=== PATIENT | female | born 1985 | race Caucasian/White ===

== ENCOUNTER 2021-09-29 11:07 | Emergency (ER) | payer OTHER ==
[~2021-09-29] VITALS: Ht 154.9 cm; Wt 60.8 kg
[2021-09-29 11:22] VITALS: BP 113/61
--- NOTE | 2021-09-29 11:32 | NUR ---
PT AMBULATED TO ER BED 12
--- NOTE | 2021-09-29 11:40 | NUR ---
36 Y/O FEMALE PRESENTS TO ED WITH REFERRAL FROM DR MARTIN TO R/O ECTOPIC , REQUESTING US AND BLOOD WORK. PT DENIES VAGINAL BLEEDING/DISCHARGE. PT REPORTS NAUSEA BUT DENIES VOMITING. DENIES ABDOMINAL PAIN AT THIS TIME BUT REPORTS INTERMITTENT LLQ ABD PAIN. LMP 08/20. [id number]. PT REPORTS SHE WAS AT [facility] FOR VAGINAL BLEEDING. PT FOLLOWED UP WITH DR MARTIN. PT A/O X4 WITH EVEN AND UNLABORED RESPIRATIONS. PT IN GOWN. MEDHX: ASTHMA NKDA
--- NOTE | 2021-09-29 11:48 | NUR ---
LAB AT BEDSIDE
[2021-09-29 12:12] LABS: BASOPHILS # (AUTO) 0.1 K/uL (0.00-0.22); BASOPHILS % (AUTO) 1.2 % (0.0-2.0); EOSINOPHILS # (AUTO) 0.2 K/uL (0-0.4); EOSINOPHILS % (AUTO) 5.2 % (0.0-4.0); HEMATOCRIT 33.6 % (36-48); HEMOGLOBIN 11.4 g/dL (12.0-16.0); LYMPHOCYTES # (AUTO) 0.8 K/uL (2.5-16.5); LYMPHOCYTES % (AUTO) 17.6 % (20.5-51.1); MEAN CORPUSCULAR HEMOGLOBIN 31 pg (27-31); MEAN CORPUSCULAR HGB CONC 34 g/dL (33-37); MEAN CORPUSCULAR VOLUME 92.1 fL (80-94); MONOCYTES # (AUTO) 0.3 K/uL (0.8-1.0); MONOCYTES % (AUTO) 6.7 % (1.7-9.3); NEUTROPHILS # (AUTO) 3.3 K/uL (1.8-7.7); NEUTROPHILS % (AUTO) 69.3 % (42.2-75.2); PLATELET COUNT (AUTO) 318 K/uL (140-450); RED BLOOD CELL COUNT(AUTO) 3.65 MIL/uL (4.20-5.40); RED CELL DISTRIBUTION WIDTH 13.7 % (11.6-13.7); WHITE BLOOD COUNT (AUTO) 4.7 K/uL (4.8-10.8)
--- NOTE | 2021-09-29 12:20 | NUR ---
ULTRASOUND AT BEDSIDE
[2021-09-29 12:51] LABS: APPEARANCE,URINE CLEAR (CLEAR); BILIRUBIN,URINE NEGATIVE (NEGATIVE); BLOOD, URINE TRACE-I (NEGATIVE); LEUKOCYTE ESTERASE ,URINE TRACE (NEGATIVE); NITRITE, URINE NEGATIVE (NEGATIVE); PH,URINE 6.5 (5.0-9.0); UGLUCOSE NEGATIVE (NEGATIVE)
[2021-09-29 12:53] LABS: COLOR,URINE YELLOW (YELLOW)
[2021-09-29 12:54] LABS: RBC,URINE 0-5 /HPF (0-5); WBC,URINE 0-5 /HPF (0-5)
--- NOTE | 2021-09-29 13:06 | NUR ---
PT SITTING IN BED WITH EVEN AND UNLABORED RESPIRATIONS. PT HAS NO COMPLAINTS, ALL NEEDS MET AT THIS TIME.
[2021-09-29 13:59] VITALS: BP 112/75
--- NOTE | 2021-09-29 13:59 | NUR ---
Patient discharged with v/s stable. Written and verbal after care instructions given and explained. Patient alert, oriented and verbalized understanding of instructions. Ambulatory with steady gait. All questions addressed prior to discharge. ID band removed. Patient advised to follow up with PMD. Opportunity to ask questions provided and answered.
== END 2021-09-29 13:59 | disposition home or self-care (01) ==
LOC: MED 11:07
DX: O20.0 Threatened abortion (principal); O21.8 Other vomiting complicating pregnancy; J45.909 Unspecified asthma, uncomplicated; Z3A.01 Less than 8 weeks gestation of pregnancy
CPT/HCPCS: 36415; 76817; 81001; 81025; 84702; 85025; 86900; 86901; 99284; Q0092

== ENCOUNTER 2021-10-06 11:53 | Emergency (ER) | payer OTHER ==
[~2021-10-06] VITALS: Ht 154.9 cm; Wt 62.1 kg
[2021-10-06 12:08] VITALS: BP 124/96
--- NOTE | 2021-10-06 12:17 | NUR ---
PT AMBULATED TO ER BED 12 WITH A STEADY GAIT.
--- NOTE | 2021-10-06 12:26 | NUR ---
36 Y/O FEMALE 7WEEKSW REFERRED TO ED BY VERONICA FOR METHOTREXATE SHOT FOR POSSIBLE ECTOPIC . PT C/O LLQ PAIN 4/10 DESCRIBES SHARP NON-RADIATING. DENIES N/V, DENIES FEVER/CHILLS. LMP 08/14/21 PMH: ASTHMA NKA
--- NOTE | 2021-10-06 12:27 | NUR ---
STEAM DISTRIBUTION SUPERVISOR AT PT BEDSIDE.
[2021-10-06 12:38] LABS: BASOPHILS # (AUTO) 0.1 K/uL (0.00-0.22); BASOPHILS % (AUTO) 0.6 % (0.0-2.0); EOSINOPHILS % (AUTO) 0.5 % (0.0-4.0); HEMATOCRIT 33.5 % (36-48); HEMOGLOBIN 11.5 g/dL (12.0-16.0); LYMPHOCYTES # (AUTO) 0.6 K/uL (2.5-16.5); LYMPHOCYTES % (AUTO) 6.9 % (20.5-51.1); MEAN CORPUSCULAR HEMOGLOBIN 31 pg (27-31); MEAN CORPUSCULAR HGB CONC 34 g/dL (33-37); MEAN CORPUSCULAR VOLUME 91.6 fL (80-94); MONOCYTES # (AUTO) 0.3 K/uL (0.8-1.0); MONOCYTES % (AUTO) 4.1 % (1.7-9.3); NEUTROPHILS # (AUTO) 7.3 K/uL (1.8-7.7); NEUTROPHILS % (AUTO) 87.9 % (42.2-75.2); PLATELET COUNT (AUTO) 334 K/uL (140-450); RED BLOOD CELL COUNT(AUTO) 3.65 MIL/uL (4.20-5.40); RED CELL DISTRIBUTION WIDTH 13.6 % (11.6-13.7); WHITE BLOOD COUNT (AUTO) 8.4 K/uL (4.8-10.8)
[2021-10-06 13:10] LABS: ALBUMIN 3.9 g/dL (3.4-5.0); ANION GAP 14.1 (8-16); CARBON DIOXIDE 25.2 mmol/L (21-32); CREATININE 0.6 mg/dL (0.6-1.3); POTASSIUM 3.3 mmol/L (3.5-5.1); TOTAL BILIRUBIN 0.5 mg/dL (0.0-1.0)
[2021-10-06] MEDS ORDERED: METHOTREXATE 100 MG/4 ML VIAL IM ONE (13:40)
[2021-10-06 14:24] VITALS: BP 124/96
[2021-10-07] MEDS ORDERED: BECL10.62 INH (21:29)
[2021-10-07] MEDS ORDERED: FLONAS NS (21:29)
[2021-10-07] MEDS ORDERED: ALBU0.0912 IH (21:29)
== END 2021-10-06 14:24 | disposition home or self-care (01) ==
LOC: MED 11:53
DX: R10.32 Left lower quadrant pain (principal); J45.909 Unspecified asthma, uncomplicated
CPT/HCPCS: 36415; 80053; 85025; 96372; 99283; J9260

== ENCOUNTER 2021-10-07 16:27 | Inpatient (IN) | payer OTHER ==
[~2021-10-07] VITALS: Ht 154.9 cm; Wt 61.2 kg
[2021-10-07 16:40] VITALS: BP 138/65
--- NOTE | 2021-10-07 17:04 | NUR ---
AMBULATED TO BED 2
--- NOTE | 2021-10-07 17:25 | NUR ---
36 YEARS OLD FEMALE WALKING TO ER C/O ABDOMINAL PAIN NAUSEA VOMITING, SPOTTING AFTER METHOTREXATE.
[2021-10-07] MEDS ORDERED: MORPHINE SULFATE 4 MG/ML SYR IVP ONE ×2 (18:00→21:00)
--- NOTE | 2021-10-07 18:40 | NUR ---
LAB/URINE COLLECTED SENT PATIENT WENT TO US. Addendum: 10/07/21 at 1841 by [id number] PATIENT AWAITING FOR US.
[2021-10-07 18:57] LABS: APPEARANCE,URINE HAZY (CLEAR); BILIRUBIN,URINE 1+ (NEGATIVE); BLOOD, URINE 3+ (NEGATIVE); COLOR,URINE DARK YELLOW (YELLOW); LEUKOCYTE ESTERASE ,URINE TRACE (NEGATIVE); NITRITE, URINE NEGATIVE (NEGATIVE); UGLUCOSE NEGATIVE (NEGATIVE)
--- NOTE | 2021-10-07 19:04 | NUR ---
PATIENT PAIN/NAUSEA IMPROVED BP<[address] GARCIA NOTIFIED.
[2021-10-07 19:10] LABS: RBC,URINE 20-50 /HPF (0-5); WBC,URINE 0-5 /HPF (0-5)
[2021-10-07] MEDS ORDERED: NACL 0.9% 1,000 ML IV ONE (19:10)
[2021-10-07 19:11] LABS: YEAST,URINE None Seen /HPF (None Seen)
--- NOTE | 2021-10-07 19:12 | NUR ---
REPORT ENDORSED TO NURSE DOROTHY ALL QUESTIONS ANSWERED.
[2021-10-07 19:13] LABS: BASOPHILS # (AUTO) 0.1 K/uL (0.00-0.22); BASOPHILS % (AUTO) 0.6 % (0.0-2.0); EOSINOPHILS % (AUTO) 0.4 % (0.0-4.0); HEMATOCRIT 32.5 % (36-48); LYMPHOCYTES # (AUTO) 0.3 K/uL (2.5-16.5); MEAN CORPUSCULAR HEMOGLOBIN 31 pg (27-31); MEAN CORPUSCULAR HGB CONC 34 g/dL (33-37); MEAN CORPUSCULAR VOLUME 92.4 fL (80-94); MONOCYTES # (AUTO) 0.3 K/uL (0.8-1.0); MONOCYTES % (AUTO) 3.2 % (1.7-9.3); NEUTROPHILS # (AUTO) 8.8 K/uL (1.8-7.7); NEUTROPHILS % (AUTO) 92.8 % (42.2-75.2); PLATELET COUNT (AUTO) 322 K/uL (140-450); RED BLOOD CELL COUNT(AUTO) 3.52 MIL/uL (4.20-5.40); RED CELL DISTRIBUTION WIDTH 13.7 % (11.6-13.7); WHITE BLOOD COUNT (AUTO) 9.5 K/uL (4.8-10.8)
--- NOTE | 2021-10-07 19:20 | NUR ---
ultrasound at bedside.
[2021-10-07 19:35] LABS: ALBUMIN 3.7 g/dL (3.4-5.0); CARBON DIOXIDE 23.3 mmol/L (21-32); CREATININE 0.6 mg/dL (0.6-1.3); POTASSIUM 3.3 mmol/L (3.5-5.1); TOTAL BILIRUBIN 0.5 mg/dL (0.0-1.0)
--- NOTE | 2021-10-07 20:30 | NUR ---
pt reposition per request. all needs met at this time
[2021-10-07] MEDS ORDERED: BECL10.62 INH (21:29)
[2021-10-07] MEDS ORDERED: FLONAS NS (21:29)
[2021-10-07] MEDS ORDERED: ALBU0.0912 IH (21:29)
[2021-10-07] MEDS ORDERED: ONDANSETRON 4 MG/2 ML VIAL IVP PRN (21:35)
[2021-10-07] MEDS ORDERED: MORPHINE SULFATE 2 MG/ML SYR IVP PRN (21:35)
[2021-10-07] MEDS ORDERED: ACETAMINOPHEN EXTRA STRENGTH 500 MG TAB PO PRN (21:35)
--- NOTE | 2021-10-07 22:45 | NUR ---
PT APPEARS TO BE RESTING. EQUAL RISE AND FALL OF CHEST WALL. EYES ARE CLOSED OPENS TO SOUND. VSS. PT IS STABLE CONDITION. ALL NEEDS MET AT THIS TIME.
--- NOTE | 2021-10-07 22:53 | NUR ---
Patient will be admitted to care of . Admited to [facility]. Will go to room 111B. Belongings list completed. Report to TAMIKO GLASGOW.
--- NOTE | 2021-10-07 23:00 | NUR ---
PATIENT WAS BROUGHT TO MST UNIT VIA WHEELCHAIR FROM ER. [id number]. CC: ABDOMINAL PAIN. N/V. NO ACUTE DISTRESS. RESPIRATION EVEN UNLABORED. SKIN IS INTACT, WARM AND DRY TO THE TOUCH. ALL SAFETY PRECAUTIONS ARE IN PLACE. ORIENTED TO RESTROOM, CALL LIGHT , STAFF. NO COMPLAINTS OF PAIN AT THIS TIME. CALL LIGHT WITHIN REACH. IVF NS STARTED PER MD ORDERED. WILL CONTINUE TO MONITOR.
[2021-10-07] MEDS ORDERED: NACL 0.9% 1,000 ML IV SCH (23:45)
[2021-10-07] MEDS ORDERED: MAGNESIUM OXIDE 400 MG TAB PO PRN (23:45)
[2021-10-07] MEDS ORDERED: DOCUSATE SODIUM 100 MG GELCAP PO PRN (23:45)
[2021-10-07] MEDS ORDERED: POTASSIUM CHLORIDE 10 MEQ TABER PO PRN (23:45)
[2021-10-07] MEDS ORDERED: SODIUM PHOS / POTASSIUM PHOS 1 PKT PDR PO PRN (23:45)
[2021-10-07] MEDS ORDERED: ACETAMINOPHEN 325 MG TAB PO PRN (23:45)
[2021-10-08] VITALS: BP 100/50
[2021-10-08 00:20] LABS: PHOSPHORUS 2.5 mg/dL (2.5-4.9)
[2021-10-08] MEDS: HYDROcodone/APAP 5/325 MG 1 TAB TAB PO PRN ×2 (03:37→10:38)
[2021-10-08 06:43] LABS: BASOPHILS # (AUTO) 0.1 K/uL (0.00-0.22); BASOPHILS % (AUTO) 0.9 % (0.0-2.0); EOSINOPHILS # (AUTO) 0.1 K/uL (0-0.4); EOSINOPHILS % (AUTO) 1.2 % (0.0-4.0); HEMATOCRIT 27.4 % (36-48); HEMOGLOBIN 9.3 g/dL (12.0-16.0); LYMPHOCYTES # (AUTO) 0.8 K/uL (2.5-16.5); MEAN CORPUSCULAR HEMOGLOBIN 32 pg (27-31); MEAN CORPUSCULAR HGB CONC 34 g/dL (33-37); MEAN CORPUSCULAR VOLUME 92.5 fL (80-94); MONOCYTES # (AUTO) 0.4 K/uL (0.8-1.0); MONOCYTES % (AUTO) 6.8 % (1.7-9.3); NEUTROPHILS # (AUTO) 4.4 K/uL (1.8-7.7); NEUTROPHILS % (AUTO) 77.1 % (42.2-75.2); PLATELET COUNT (AUTO) 265 K/uL (140-450); RED BLOOD CELL COUNT(AUTO) 2.96 MIL/uL (4.20-5.40); RED CELL DISTRIBUTION WIDTH 13.6 % (11.6-13.7); WHITE BLOOD COUNT (AUTO) 5.8 K/uL (4.8-10.8)
[2021-10-08 07:16] LABS: ANION GAP 12.8 (8-16); CARBON DIOXIDE 24.3 mmol/L (21-32); CREATININE 0.6 mg/dL (0.6-1.3); POTASSIUM 3.1 mmol/L (3.5-5.1)
--- NOTE | 2021-10-08 07:25 | NUR ---
ENDORSED TO AM NURSE FOR CONTINUITY OF CARE. PT IN STABLE CONDITION.
--- NOTE | 2021-10-08 07:27 | NUR ---
RECEIVED REPORT FROM DECKHAND. PATIENT IS AWAKE AND LAYING IN BED. NO S/S OF DISTRESS. NO COMPLAINTS OF PAIN. ALL SAFETY PRECAUTIONS IN PLACE.
[2021-10-08 08:00] VITALS: BP 108/69
[2021-10-08] MEDS ORDERED: PANTOPRAZOLE 40 MG TABEC PO SCH (09:00)
--- NOTE | 2021-10-08 09:26 | NUR ---
ADMINISTERED SCHEDULED MEDICATION. PATIENT VERBALIZED UNDERSTANDING. PATIENT COMPLAINED OF NAUSEA. ADMINISTERED PRN N/V MEDICATION. ALSO ASSISTED PATIENT TO RESTROOM AND BACK TO BED. NO COMPLAINTS OF PAIN. ALL SAFETY PRECAUTIONS IN PLACE.
--- NOTE | 2021-10-08 11:05 | NUR ---
PATIENT'S SPOUSE AT BEDSIDE WITH PATIENT. PATIENT IS STABLE.
--- NOTE | 2021-10-08 13:25 | NUR ---
PATIENT IS RESTING IN BED. NO COMPLAINTS OF PAIN. NO S/S OF DISTRESS. ALL SAFETY PRECAUTIONS IN PLACE.
[2021-10-08 14:58] VITALS: BP 108/69
--- NOTE | 2021-10-08 15:15 | NUR ---
ENDORSED DISCHARGE INSTRUCTIONS TO PATIENT. PATIENT VERBALIZED UNDERSTANDING. IV REMOVED; CATH INTACT. PATIENT WHEELED OUT BY PROFESSOR OF RELIGIOUS STUDIES. PATIENT STABLE.
== END 2021-10-08 15:15 | disposition home or self-care (01) | DRG 833 ==
LOC: MED 16:27 → MTU 21:39
PROVIDERS: ADMIT Hospitalist; ATTEND Hospitalist
DX: O00.90 Unspecified ectopic pregnancy without intrauterine pregnancy (principal); R31.9 Hematuria, unspecified; E87.6 Hypokalemia; O99.281 Endocrine, nutritional and metabolic diseases complicating pregnancy, first trimester; O26.891 Other specified pregnancy related conditions, first trimester; O99.011 Anemia complicating pregnancy, first trimester; O99.511 Diseases of the respiratory system complicating pregnancy, first trimester; J45.909 Unspecified asthma, uncomplicated
CPT/HCPCS: 36415; 76801; 80048; 80053; 81001; 83735; 84100; 84702; 85025; 86886; 86900; 86901; 87081; 87086; 96361; 96374; 96376; 99285; J2270; J2405; Q0092

== ENCOUNTER 2021-10-17 09:14 | Emergency (ER) | payer OTHER ==
[~2021-10-17] VITALS: Ht 154.9 cm; Wt 60.3 kg
[2021-10-17 09:27] VITALS: BP 138/86
--- NOTE | 2021-10-17 09:29 | NUR ---
PT AMBULATED TO BED
--- NOTE | 2021-10-17 09:36 | NUR ---
36 Y/O FEMALE C/O LT SIDED PELVIC PAIN FOR 1 MONTH. PT STATES SHARP 4/10 PAIN. TOOK TYLENOL WITH NO RELIEF. NEEDS SECOND DOSE OF METHOTREXATE. ABD SOFT NON TENDER. VSS. SKIN WARM AND DRY. MEDHX:ASTHMA, ECTOPIC NKA LMP: AUG 14, 2021
[2021-10-17] MEDS ORDERED: METHOTREXATE 100 MG/4 ML VIAL IM ONE (09:40)
--- NOTE | 2021-10-17 09:45 | NUR ---
DR BISHOP AT BEDSIDE EXAMINING PT
[2021-10-17] MEDS ORDERED: ONDA-188 PO (09:51)
[2021-10-17 10:21] VITALS: BP 138/86
== END 2021-10-17 10:21 | disposition home or self-care (01) ==
LOC: MED 09:14
DX: O04.80 (Induced) termination of pregnancy with unspecified complications (principal); Z3A.01 Less than 8 weeks gestation of pregnancy; J45.909 Unspecified asthma, uncomplicated
CPT/HCPCS: 96372; 99283; J9260

== ENCOUNTER 2021-10-24 09:51 | Emergency (ER) | payer OTHER ==
[~2021-10-24] VITALS: Ht 154.9 cm; Wt 60.8 kg
[~2021-10-24 09:51] MED LIST: ONDA-188 PO
[2021-10-24 10:10] VITALS: BP 136/86
--- NOTE | 2021-10-24 10:50 | NUR ---
PT AMBULATED TO BED 12
--- NOTE | 2021-10-24 11:07 | NUR ---
36/F BIB SELF. A&O X4, AMBULATORY W/ STEADY GAIT, C/O ABDOMINAL PAIN. PATIENT REPORTS PAIN BEGAN 1 WEEK AGO W/ WORSENING PAIN, RADIATION OF PAIN FROM ABD TO L LEG, VAGINAL BLEEDING, +N/V/ CONSTIPATION. PAIN IS 8/10, SHARP, "CRAMPING" AND INTERMITTENT. PATIENT STATES TO TAKE MOTRIN AND TYLENOL W/ NO PAIN RELIEF NOTED. PATIENT DENIES FEVER, DIARRHEA, CHEST PAIN, SOB, DYSURIA. PMH: ASTHMA NKA MEDS: ALBUTEROL, FLONASE
--- NOTE | 2021-10-24 11:29 | NUR ---
DR. WISE EVALUATING PATIENT AT BEDSIDE
[2021-10-24] MEDS ORDERED: MORPHINE SULFATE 4 MG/ML SYR IM ONE (11:35)
--- NOTE | 2021-10-24 12:09 | NUR ---
VICE PRESIDENT BEDSIDE WITH PATIENT
[2021-10-24 12:20] LABS: BASOPHILS # (AUTO) 0.1 K/uL (0.00-0.22); BASOPHILS % (AUTO) 0.8 % (0.0-2.0); EOSINOPHILS # (AUTO) 0.2 K/uL (0-0.4); EOSINOPHILS % (AUTO) 2.4 % (0.0-4.0); HEMATOCRIT 31.2 % (36-48); HEMOGLOBIN 10.5 g/dL (12.0-16.0); LYMPHOCYTES # (AUTO) 0.7 K/uL (2.5-16.5); LYMPHOCYTES % (AUTO) 9.5 % (20.5-51.1); MEAN CORPUSCULAR HEMOGLOBIN 31 pg (27-31); MEAN CORPUSCULAR HGB CONC 34 g/dL (33-37); MONOCYTES # (AUTO) 0.3 K/uL (0.8-1.0); MONOCYTES % (AUTO) 4.6 % (1.7-9.3); NEUTROPHILS # (AUTO) 6.2 K/uL (1.8-7.7); NEUTROPHILS % (AUTO) 82.7 % (42.2-75.2); PLATELET COUNT (AUTO) 381 K/uL (140-450); RED BLOOD CELL COUNT(AUTO) 3.39 MIL/uL (4.20-5.40); RED CELL DISTRIBUTION WIDTH 13.7 % (11.6-13.7); WHITE BLOOD COUNT (AUTO) 7.4 K/uL (4.8-10.8)
--- NOTE | 2021-10-24 13:40 | NUR ---
Patient appears to be resting comfortably in bed. Vital Signs within normal limits. Respirations even and unlabored.
[2021-10-24] MEDS ORDERED: ACET-10509 PO (14:23)
--- NOTE | 2021-10-24 14:57 | NUR ---
The patient's care was reviewed and supervised by Yaritza Boo RN, RN.
[2021-10-24 15:00] VITALS: BP 110/69
--- NOTE | 2021-10-24 15:00 | NUR ---
Patient discharged with v/s stable. Written and verbal after care instructions ABOUT PELVIC PAIN given and explained. Patient alert, oriented and verbalized understanding of instructions. Ambulatory with steady gait. All questions addressed prior to discharge. ID band removed. Patient advised to follow up with PMD. Rx of ACETAMINOPHEN TAB given.
--- NOTE | 2021-10-24 15:02 | NUR ---
The patient's care was reviewed and supervised by Yaritza Boo RN, RN.
--- NOTE | 2021-10-24 15:02 | NUR ---
Chart checked and completed. The patient's care was reviewed and supervised by Yaritza Boo, RN, RN.
[2021-10-24 15:07] LABS: APPEARANCE,URINE CLEAR (CLEAR); BILIRUBIN,URINE NEGATIVE (NEGATIVE); BLOOD, URINE 3+ (NEGATIVE); LEUKOCYTE ESTERASE ,URINE NEGATIVE (NEGATIVE); NITRITE, URINE NEGATIVE (NEGATIVE); PH,URINE 8.5 (5.0-9.0); UGLUCOSE NEGATIVE (NEGATIVE)
[2021-10-24 15:10] LABS: COLOR,URINE AMBER (YELLOW)
[2021-10-24 15:42] LABS: RBC,URINE TOO NUMEROUS TO COUN /HPF (0-5); WBC,URINE 0-5 /HPF (0-5)
== END 2021-10-24 15:00 | disposition home or self-care (01) ==
LOC: MED 09:51
DX: O00.90 Unspecified ectopic pregnancy without intrauterine pregnancy (principal); J45.909 Unspecified asthma, uncomplicated; Z3A.01 Less than 8 weeks gestation of pregnancy
CPT/HCPCS: 36415; 76817; 81001; 81025; 84702; 85025; 86900; 86901; 96372; 99284; J2270; Q0092

== ENCOUNTER 2021-10-25 16:34 | Inpatient (IN) | payer OTHER, SELFPAY ==
[~2021-10-25] VITALS: Ht 154.9 cm; Wt 60.8 kg
[~2021-10-25 16:34] MED LIST changes: +ACET-10509 PO
[2021-10-25 18:01] VITALS: BP 120/78
[2021-10-25] MEDS ORDERED: MORPHINE SULFATE 4 MG/ML SYR IVP ONE (18:40)
[2021-10-25] MEDS ORDERED: ONDANSETRON 4 MG/2 ML VIAL IVP ONE (18:40)
[2021-10-25] MEDS ORDERED: NACL 0.9% 1,000 ML IV ONE (18:40)
--- NOTE | 2021-10-25 19:42 | NUR ---
CT CONSENT SIGNED
--- NOTE | 2021-10-25 19:45 | NUR ---
Pt ambulated to restroom for urine sample. Gown provided.
[2021-10-25] MEDS ORDERED: MORPHINE SULFATE 4 MG/ML SYR ONE (19:46)
[2021-10-25] MEDS ORDERED: ONDANSETRON 4 MG/2 ML VIAL ONE (19:46)
[2021-10-25 19:59] LABS: BASOPHILS # (AUTO) 0.1 K/uL (0.00-0.22); BASOPHILS % (AUTO) 0.7 % (0.0-2.0); EOSINOPHILS # (AUTO) 0.1 K/uL (0-0.4); EOSINOPHILS % (AUTO) 0.6 % (0.0-4.0); HEMATOCRIT 32.4 % (36-48); HEMOGLOBIN 10.9 g/dL (12.0-16.0); LYMPHOCYTES # (AUTO) 0.5 K/uL (2.5-16.5); LYMPHOCYTES % (AUTO) 4.9 % (20.5-51.1); MEAN CORPUSCULAR HEMOGLOBIN 31 pg (27-31); MEAN CORPUSCULAR HGB CONC 34 g/dL (33-37); MEAN CORPUSCULAR VOLUME 92.2 fL (80-94); MONOCYTES # (AUTO) 0.3 K/uL (0.8-1.0); MONOCYTES % (AUTO) 2.6 % (1.7-9.3); NEUTROPHILS # (AUTO) 8.8 K/uL (1.8-7.7); NEUTROPHILS % (AUTO) 91.2 % (42.2-75.2); PLATELET COUNT (AUTO) 440 K/uL (140-450); RED BLOOD CELL COUNT(AUTO) 3.51 MIL/uL (4.20-5.40); RED CELL DISTRIBUTION WIDTH 14.3 % (11.6-13.7); WHITE BLOOD COUNT (AUTO) 9.6 K/uL (4.8-10.8)
[2021-10-25 20:00] LABS: APPEARANCE,URINE BLOODY (CLEAR); BILIRUBIN,URINE NEGATIVE (NEGATIVE); BLOOD, URINE 3+ (NEGATIVE); COLOR,URINE RED (YELLOW); LEUKOCYTE ESTERASE ,URINE 1+ (NEGATIVE); NITRITE, URINE POSITIVE (NEGATIVE); PH,URINE 5.5 (5.0-9.0); UGLUCOSE NEGATIVE (NEGATIVE)
[2021-10-25 20:24] LABS: RBC,URINE TOO NUMEROUS TO COUN /HPF (0-5); WBC,URINE 0-5 /HPF (0-5)
[2021-10-25 20:34] LABS: ANION GAP 13.5 (8-16); CREATININE 0.6 mg/dL (0.6-1.3); POTASSIUM 3.5 mmol/L (3.5-5.1); TOTAL BILIRUBIN 0.4 mg/dL (0.0-1.0)
[2021-10-25] MEDS ORDERED: MORPHINE SULFATE 4 MG/ML SYR IVP SCH (22:05)
--- NOTE | 2021-10-25 22:35 | NUR ---
36 Y/O FEMALE WITH LLQ PAIN FOR X3 DAYS. PT WAS SEEN ON 10/24/21 FOR CHILLS AND VAGINAL BLEEDING. PT WAS GIVEN TWO DOSES OF METHOTREXATE TO ABORT A ECTOPIC . PT IS . PT STATES THAT SHE ABORTED HER 2ND CHILD DUE TO SEVERE SICKNESS. PT STATES THAT TODAY SHE HAD A LARGE CLOT COME OUT WHEN SHE WENT TO THE BATHROOM. PT STATES PAIN 8/10. PT IS A&OX4. AMBULATORY. ALL VSS PREVIOUS MED HX:ASTHMA RX:FLONASE, ALBUTEROL, QVAR
[2021-10-26] VITALS: BP 111/65
[2021-10-26] MEDS ORDERED: NACL 0.9% 1,000 ML IV SCH (00:45)
[2021-10-26] MEDS: LACTATED RINGERS 1,000 ML IV SCH ×2 (01:03→06:15)
--- NOTE | 2021-10-26 01:10 | NUR ---
WALKED MARIFER OVER LAB. GAVE TO MARCO A
[2021-10-26] MEDS ORDERED: MORPHINE SULFATE 4 MG/ML SYR IVP PRN (03:20)
[2021-10-26] MEDS ORDERED: metroNIDAZOLE 250 MG TAB PO ONE (05:00)
--- NOTE | 2021-10-26 05:00 | NUR ---
PT SLEEPING IN SUPINE POSITION. BOTH SIDE RAILS UP FOR PT SAFETY. A&O x4. pt not complaining of pains. VSS. ALL NEEDS MET
[2021-10-26] MEDS ORDERED: BECL10.62 INH (06:13)
[2021-10-26] MEDS ORDERED: FLONAS NS (06:13)
--- NOTE | 2021-10-26 07:25 | NUR ---
Pt report given to LICHA. Transfer of care at this time.
[2021-10-26] MEDS: metroNIDAZOLE 500 MG/NS PREMIX 100 ML IV SCH ×3 (07:46→22:59)
[2021-10-26 08:00] VITALS: BP 101/66
--- NOTE | 2021-10-26 08:23 | NUR ---
PT C/O 08/13 PELVIC PAIN MEDICATED WITH MORPHINE PER ORDER. PT TOLERATED WELL. NAD. SAFETY MAINTAINED.
--- NOTE | 2021-10-26 08:50 | NUR ---
RECEIVED REPORT FROM LICHA MORRISON ER NURSE.
[2021-10-26] MEDS ORDERED: ZOLPIDEM 5 MG TAB PO PRN (09:10)
[2021-10-26] MEDS ORDERED: HYDROcodone/APAP 5/325 MG 1 TAB TAB PO PRN (09:10)
[2021-10-26] MEDS ORDERED: LORazepam 2 MG/ML VIAL IM/IVP PRN (09:10)
[2021-10-26] MEDS ORDERED: DOCUSATE SODIUM 100 MG GELCAP PO PRN (09:10)
[2021-10-26] MEDS ORDERED: ONDANSETRON 4 MG/2 ML VIAL IM/IVP PRN (09:10)
[2021-10-26] MEDS ORDERED: ACETAMINOPHEN 325 MG TAB PO PRN (09:10)
[2021-10-26] MEDS ORDERED: ONDANSETRON 4 MG ODT PO PRN (09:10)
--- NOTE | 2021-10-26 09:15 | NUR ---
PATIENT ARRIVE TO UNIT VIA GURNEY. PATIENT AWAKE AND ALERT. NO ACUTE DISTRESS NOTED. PATIENT ON ROOM AIR. NO ABNORMAL HEART SOUNDS HEARD. LUNG SOUNDS ARE CLEAR. BOWEL SOUNDS HEARD IN ALL FOUR QUADRANTS. PATIENT ABLE TO AMBULATE WITHOUT DIFFICULTY. PATIENT SKIN IS CLEAN, DRY AND WARM TO TOUCH. PATIENT DENIES PAIN AT THIS TIME. EDUCATED PATIENT TO ROOM ENVIRONMENT. PATIENT VERBALIZE UNDERSTANDING. ALL SAFETY MEASURES IN PLACE. CALL LIGHT WITHIN REACH.
[2021-10-26 09:52] LABS: BASOPHILS % (AUTO) 1.4 % (0.0-2.0); EOSINOPHILS # (AUTO) 0.2 K/uL (0-0.4); EOSINOPHILS % (AUTO) 5.5 % (0.0-4.0); HEMATOCRIT 27.7 % (36-48); HEMOGLOBIN 9.4 g/dL (12.0-16.0); LYMPHOCYTES # (AUTO) 0.7 K/uL (2.5-16.5); LYMPHOCYTES % (AUTO) 19.5 % (20.5-51.1); MEAN CORPUSCULAR HEMOGLOBIN 31 pg (27-31); MEAN CORPUSCULAR HGB CONC 34 g/dL (33-37); MEAN CORPUSCULAR VOLUME 91.8 fL (80-94); MONOCYTES # (AUTO) 0.3 K/uL (0.8-1.0); NEUTROPHILS # (AUTO) 2.4 K/uL (1.8-7.7); NEUTROPHILS % (AUTO) 66.6 % (42.2-75.2); PLATELET COUNT (AUTO) 359 K/uL (140-450); RED BLOOD CELL COUNT(AUTO) 3.02 MIL/uL (4.20-5.40); RED CELL DISTRIBUTION WIDTH 13.9 % (11.6-13.7); WHITE BLOOD COUNT (AUTO) 3.6 K/uL (4.8-10.8)
[2021-10-26 10:12] LABS: ALBUMIN 3.2 g/dL (3.4-5.0); ANION GAP 8.7 (8-16); CREATININE 0.5 mg/dL (0.6-1.3); POTASSIUM 3.7 mmol/L (3.5-5.1); TOTAL BILIRUBIN 0.4 mg/dL (0.0-1.0)
[2021-10-26 10:19] LABS: THYROID STIMULATING HORMONE 2.77 uIU/mL (0.34-3.74)
[2021-10-26 10:20] LABS: PROTHROMBIN TIME 10.9 secs (10.8-13.4)
--- NOTE | 2021-10-26 11:15 | NUR ---
PATIENT SLEEPING. NO ACUTE DISTRESS NOTED. BREATHING EVEN AND UNLABORED. CALL LIGHT WITHIN REACH. ALL SAFETY MEASURES IN PLACE. WILL CONTINUE TO MONITOR .
[2021-10-26] MEDS: NACL 0.9% 1,000 ML IV SCH (11:58)
--- NOTE | 2021-10-26 12:48 | NUR ---
PATIENT HAS BEEN SCREENED AND CATEGORIZED MODERATE NUTRITION RISK. PATIENT WILL BE SEEN WITHIN 3-5 DAYS OF ADMISSION. 10/26/21 10/30/21 REFERRAL RECEIVED NOT APPLICABLE [address]
[2021-10-26] MEDS ORDERED: BUPIVACAINE-MPF/EPI 0.25% 30 ML VIAL INJ ONE (13:05)
[2021-10-26] MEDS ORDERED: PROPOFOL 200 MG/20 ML VIAL IV ONE (13:09)
[2021-10-26] MEDS ORDERED: fentaNYL citrate 0.05 MG/ML VIAL ONE (13:11)
[2021-10-26] MEDS ORDERED: KETOROLAC 30 MG/ML VIAL ONE (13:25)
[2021-10-26] MEDS ORDERED: ROCURONIUM 50 MG/5 ML VIAL IV ONE (13:25)
[2021-10-26] MEDS ORDERED: HYDROmorphone PFS 2 MG/ML SYR ONE (13:26)
[2021-10-26] MEDS ORDERED: ONDANSETRON 4 MG/2 ML VIAL ONE (13:26)
[2021-10-26] MEDS ORDERED: DEXAMETHASONE 4 MG/ML VIAL ONE (13:26)
[2021-10-26] MEDS ORDERED: SUGAMMADEX SODIUM 200 MG/2 ML VIAL IV ONE (13:26)
--- NOTE | 2021-10-26 14:16 | NUR ---
PATIENT CONTINUES IN OR.
[2021-10-26] MEDS ORDERED: ONDANSETRON 4 MG/2 ML VIAL IVP PRN (14:50)
[2021-10-26] MEDS ORDERED: HYDROmorphone 1 MG/ML AMP IVP PRN (14:50)
--- NOTE | 2021-10-26 15:35 | NUR ---
PATIENT BACK FROM SALPINGECTOMY.
[2021-10-26 16:00] VITALS: BP 102/58
--- NOTE | 2021-10-26 16:39 | NUR ---
PATIENT SLEEPING. NO ACUTE DISTRESS NOTED. BREATHING EVEN AND UNLABORED. CALL LIGHT WITHIN REACH. ALL SAFETY MEASURES IN PLACE. WILL CONTINUE TO MONITOR.
--- NOTE | 2021-10-26 17:53 | NUR ---
PATIENT SLEEPING. NO ACUTE DISTRESS NOTED. BREATHING EVEN AND UNLABORED. CALL LIGHT WITHIN REACH. ALL SAFETY MEASURES IN PLACE. WILL CONTINUE TO MONITOR.
--- NOTE | 2021-10-26 19:15 | NUR ---
ENDORSED TO BUNG DROPPER NURSE FOR CONTINUITY OF PATIENT CARE. PATIENT STABLE.
--- NOTE | 2021-10-26 19:16 | NUR ---
RECEIVED REPORT FROM AM NURSE. PATIENT IS AWAKE WELL RESTED. NO ACUTE DISTRESS NOTED. RESPIRATION EVEN UNLABORED. NO COMPLAINTS OF PAIN AT THIS TIME. AT BEDSIDE. IVF NS INFUSING AT 100 MLS ON THE LAC TOLERATING WELL. SAFETY MEASURES IN PLACE. CALL LIGHT WITHIN REACH. WILL CONTINUE TO MONITOR.
[2021-10-26] MEDS ORDERED: BECLOMETHASONE DIPROPIONATE INH SCH (21:00)
--- NOTE | 2021-10-26 22:59 | NUR ---
ADMINISTERED FLAGYL SCHEDULED PE MD ORDERED.
[2021-10-27] VITALS: BP 127/78
[2021-10-27] MEDS: NACL 0.9% 1,000 ML IV SCH (01:50)
--- NOTE | 2021-10-27 02:25 | NUR ---
ASSISTED PATIENT TO THE TOILET AND BACK TO BED. PT IS STABLE.
--- NOTE | 2021-10-27 02:48 | NUR ---
ASSISTED PATIENT TO THE TOILET AND BACK TO BED. NO SOB NOTED.
[2021-10-27] MEDS: metroNIDAZOLE 500 MG/NS PREMIX 100 ML IV SCH ×2 (06:43→15:00)
[2021-10-27 06:46] LABS: BASOPHILS % (AUTO) 0.4 % (0.0-2.0); EOSINOPHILS % (AUTO) 0.1 % (0.0-4.0); HEMATOCRIT 25.2 % (36-48); HEMOGLOBIN 8.7 g/dL (12.0-16.0); LYMPHOCYTES # (AUTO) 0.6 K/uL (2.5-16.5); LYMPHOCYTES % (AUTO) 9.1 % (20.5-51.1); MEAN CORPUSCULAR HEMOGLOBIN 31 pg (27-31); MEAN CORPUSCULAR HGB CONC 34 g/dL (33-37); MEAN CORPUSCULAR VOLUME 91.5 fL (80-94); MONOCYTES # (AUTO) 0.5 K/uL (0.8-1.0); MONOCYTES % (AUTO) 6.8 % (1.7-9.3); NEUTROPHILS # (AUTO) 5.6 K/uL (1.8-7.7); NEUTROPHILS % (AUTO) 83.6 % (42.2-75.2); PLATELET COUNT (AUTO) 351 K/uL (140-450); RED BLOOD CELL COUNT(AUTO) 2.76 MIL/uL (4.20-5.40); RED CELL DISTRIBUTION WIDTH 13.6 % (11.6-13.7); WHITE BLOOD COUNT (AUTO) 6.7 K/uL (4.8-10.8)
[2021-10-27 07:07] LABS: T4 (THYROXINE) 6.1 ug/dL (4.5-12.0)
[2021-10-27 07:19] LABS: ANION GAP 15.2 (8-16); CARBON DIOXIDE 22.4 mmol/L (21-32); CREATININE 0.5 mg/dL (0.6-1.3); POTASSIUM 3.6 mmol/L (3.5-5.1)
[2021-10-27 07:26] LABS: MAGNESIUM 1.7 mg/dL (1.8-2.4); PHOSPHORUS 3.9 mg/dL (2.5-4.9)
--- NOTE | 2021-10-27 07:35 | NUR ---
BEDSIDE ENDORSEMENT GIVEN TO AM NURSE FOR CONTINUITY OF CARE. PT IS AWAKE IN BED RESTING. NO SOB NOTED.
--- NOTE | 2021-10-27 07:38 | NUR ---
PATIENT RECEIVED FORM NIGHT NURSE PATIENT RESTING IN BED NO S/SX OF DISTRESS AT THIS TIME . ALL SAFETY MEASURES ARE IN PLACE.
[2021-10-27] MEDS: MORPHINE SULFATE 2 MG/ML SYR IVP PRN ×2 (08:17→16:24)
--- NOTE | 2021-10-27 08:21 | NUR ---
PRESCRIBED MEDICATIONS GIVEN PER MD ORDER , PT EDUCATED AND VERBALIZED UNDERSTANDING, PATIENT COMPLAINS OF 10/10 PAIN ,PATIENT REPOSITIONED AND GIVEN PRN MEDICATION .
[2021-10-27] MEDS ORDERED: FLUTICASONE NASAL 50 MCG/ACTUATION 16 GM BTL NS SCH (09:00)
--- NOTE | 2021-10-27 10:15 | NUR ---
PT HAD ONE EPISODE OF EMESIS . PRN MEDICATION GIVEN ALL SAFETY MEASURES ARE IN PLACE.
[2021-10-27 12:00] VITALS: BP 97/57
--- NOTE | 2021-10-27 12:20 | NUR ---
PT ASSITED WITH LUNCH TOLERATED WELL NO S/SX OF DISTRESS .
--- NOTE | 2021-10-27 14:00 | NUR ---
PATIENT RESTING IN BED ALL SAFETY MEASURES IN PLACE, PARTNER AT BEDSIDE.
[2021-10-27] MEDS ORDERED: ACET-5629 PO (14:58)
[2021-10-27] MEDS ORDERED: NITR100C7 PO (14:58)
--- NOTE | 2021-10-27 16:35 | NUR ---
DISCHARGE INSTRUCTIONS COMPLETE, PT VERBALIZED 8UNDERSTANDING FOR CONTINUITY OF CARE. ALL SAFETY MEASURES IN PLACE.
--- NOTE | 2021-10-27 17:21 | NUR ---
PATIENT LEFT UNIT VIA WHEEL CHAIR IN STABLE CONDITION , ALL SAFETY MEASURES ARE IN PLACE.
== END 2021-10-27 18:43 | disposition home or self-care (01) | DRG 818 ==
LOC: MED 16:34 → MTU 10-26 00:47
PROC: 10D24ZZ Extraction of Products of Conception, Ectopic, Percutaneous Endoscopic Approach (ICD-10-PCS; principal; 2021-10-26 13:20)
DX: O00.102 Left tubal pregnancy without intrauterine pregnancy (principal); O08.83 Urinary tract infection following an ectopic and molar pregnancy; O08.89 Other complications following an ectopic and molar pregnancy; N39.0 Urinary tract infection, site not specified; D62 Acute posthemorrhagic anemia; O08.5 Metabolic disorders following an ectopic and molar pregnancy; Z20.822 Contact with and (suspected) exposure to COVID-19; E86.0 Dehydration; Z79.899 Other long term (current) drug therapy
CPT/HCPCS: 36415; 80048; 80053; 81001; 82150; 83036; 83690; 83735; 83880; 84100; 84134; 84436; 84443; 84702; 85025; 85610; 85730; 86886; 86900; 86901; 87040; 87081; 87086; 88304; 88305; 96361; 96374; 96375; 99285; J0696; J1100; J1170; J1885; J2270; J2405; J2704; J3010; J3490; J7030; J7060; J7120; Q9967